=== PATIENT | male | born 1990 | race Caucasian/White ===

== ENCOUNTER 2016-08-28 11:44 | Emergency (ER) | payer SELFPAY ==
[2016-08-28 11:54] VITALS: BP 136/89; PULSE 89; TEMP 98.1; BMI 26.6
--- NOTE | 2016-08-28 12:09 | PDOC ---
History of Present Illness - General Chief Complaint: Eye Problem Stated Complaint: FB SENSATION TO LEFT EYE Time Seen by Provider: 08/28/16 11:45 History Source: Patient Exam Limitations: No Limitations - History of Present Illness Initial Comments: 08/28/16 11:45 THis is an otherwise healthy 26 yo M presenting to the ER wiht a complaint of a foreign body sensation He was mixing concrete, dropped something in the container and the concrete splashed into his face Pt felt that something got into his left eye He washed out his eye thoroughly but still felt a foreign body in his eye Vision is a bit blurry No globe tenderness PMH: denies PSH: denies Meds: denies ALL: NKDA Social: denies alcohol, drug cigarette use GENERAL/CONSTITUTIONAL: No: fever, chills, weakness, loss of appetite. HEAD, EYES, EARS, NOSE AND THROAT: No: change in vision, ear pain, discharge, sore throat, throat swelling. SKIN AND BREASTS: No: lesions, pallor, rash or easy bruising. GENERAL: The patient is in no acute distress. HEAD: Normal with no signs of trauma. EYES: PERRLA, EOMI, sclera anicteric, conjunctiva injected. Vision: 20/25 bilaterally pH 7.0 Fluorescein stain demonstrates no ulceration, possible small medial abrasion over the iris No hyphema ENT: Ears normal, nares patent, oropharynx clear without exudates. Moist mucous membranes. SKIN: Warm, Dry, normal turgor, no rashes or lesions noted. 08/28/16 12:12 Past History - Past Medical History Allergies/Adverse Reactions: Allergies Allergy/AdvReac Type Severity Reaction Status Date / Time No Known Allergies Allergy Verified 08/28/16 11:45 Home Medications: Ambulatory Orders Erythromycin 0.5% Eye Ointment [Erythromycin 0.5% Eye Ointment -] 1 applic OS QID #1 tube 08/28/16 Medical Decision Making - Medical Decision Making 08/28/16 12:09 Eye irrigated with NS Pt states he feels much better Pt discharged on erythromycin ointment and Ophthalmology follow up today or tomorrow Referrals given Clinical impression: foreign body, corneal abrasion *DC/Admit/Observation/Transfer Diagnosis at time of Disposition: Eye foreign body Qualifiers: Encounter type: initial encounter Laterality: left Qualified Code(s): T15.92XA - Foreign body on external eye, part unspecified, left eye, initial encounter Corneal abrasion, left Qualifiers: Encounter type: initial encounter Qualified Code(s): S05.02XA - Injury of conjunctiva and corneal abrasion without foreign body, left eye, initial encounter - Discharge Dispostion Disposition: HOME Condition at time of disposition: Stable Admit: No - Prescriptions Prescriptions: Erythromycin 0.5% Eye Ointment [Erythromycin 0.5% Eye Ointment -] 1 applic OS QID #1 tube - Referrals Referrals: Kurtis Quijano MD [Staff Physician] - Deandre Real MD [Staff Physician] - - Patient Instructions Printed Discharge Instructions: DI for Corneal Foreign Body-Eye, DI for Corneal Abrasion Additional Instructions: Devan Please apply erythromycin ointment four times per day for the next 3-5 days You must follow up with an Computer Language Coder within one day Return to the ER for any other concerns or complaints Print Language: PERUVIAN - Post Discharge Activity Work/School Note: Back to Work
== END 2016-08-28 13:00 | disposition home or self-care (01) ==
LOC: FER 11:44
DX: S05.02XA Injury of conjunctiva and corneal abrasion without foreign body, left eye, initial encounter (principal); T15.92XA Foreign body on external eye, part unspecified, left eye, initial encounter; W20.8XXA Other cause of strike by thrown, projected or falling object, initial encounter; Y93.89 Activity, other specified; Y99.0 Civilian activity done for income or pay
CPT/HCPCS: 99283-25